=== PATIENT | female | born 1990 | race Caucasian/White ===

== ENCOUNTER 2020-03-23 18:35 | Emergency (ER) | payer OTHER ==
--- NOTE | 2020-03-23 20:04 | ED Physician Documentation ---
PD HPI LOWER EXT INJURY - Stated complaint Stated Complaint: ANKLE INJ - Chief complaint Chief Complaint: Ext Problem - History obtained from History obtained from: Patient - History of Present Illness PD HPI LOW EXT INJURY LOCATION: Left, Ankle Type of injury: Twist Where injury occurred: Park Timing - onset: How many hours ago (2) Timing - duration: Hours (2) Timing - details: Abrupt onset Pain level max: 8 Pain level now: 5 Improved by: Rest Worsened by: Moving, Palpating Associated symptoms: Swelling. No: Weakness, Numbness, Tingling Recently seen: Not recently seen - Additional information Additional information: 29-year-old female complains of left ankle pain and swelling after twisting her ankle. Review of Systems Constitutional: denies: Fever, Chills : denies: Now EGA Neurologic: denies: Head injury PD PAST MEDICAL HISTORY - Past Medical History Past Medical History: No - Past Surgical History Past Surgical History: No - Present Medications Home Medications: Ambulatory Orders Medication Instructions Recorded Confirmed Cetirizine HCl [Zyrtec] 03/23/20 - Allergies Allergies/Adverse Reactions: Allergies Allergy/AdvReac Type Severity Reaction Status Date / Time No Known Drug Allergies Allergy Verified 03/23/20 18:49 - Social History Does the pt smoke?: No Smoking Status: Never smoker Does the pt drink ETOH?: No Does the pt have substance abuse?: No - Immunizations Immunizations are current?: Yes PD ED PE NORMAL - Vitals Vital signs reviewed: Yes - General General: Alert and oriented X 3, No acute distress - HEENT HEENT: Moist mucous membranes - Neck Neck: Supple, no meningeal sign - Derm Derm: Warm and dry - Extremities Extremities: Other (Tender to palpation over the left lateral malleolus. Mild swelling. Neurovascularly intact. No deformity. Otherwise normal examination of the foot and ankle.) - Neuro Neuro: Alert and oriented X 3 - Psych Psych: Normal mood, Normal affect Results - Vitals Vitals: Vital Signs - 24 hr 03/23/20 03/23/20 18:47 21:06 Temperature 36.7 C 36.6 C Heart Rate 82 80 Respiratory 18 16 Rate Blood Pressure 134/82 H 130/80 O2 Saturation 98 100 Oxygen O2 Source Room air - Rads (name of study) Left ankle x-ray Radiology: Prelim report reviewed, EMP read contemporaneously, See rad report (No acute abnormality) PD MEDICAL DECISION MAKING - ED course Complexity details: reviewed results, re-evaluated patient, considered differential, d/w patient ED course: 29-year-old female with a left ankle sprain. Placed in a gel splint for comfort. Will utilize crutches as needed at home. Will use Motrin and Tylenol for pain. Patient counseled regarding signs and symptoms for which I believe and urgent re-evaluation would be necessary. Patient with good understanding of and agreement to plan and is comfortable going home at this time This document was made in part using voice recognition software. While efforts are made to proofread this document, sound alike and grammatical errors may occur. Departure - Departure Disposition: 01 Home, Self Care Clinical Impression: Left ankle sprain Qualifiers: Encounter type: initial encounter Involved ligament of ankle: unspecified ligament Qualified Code(s): S93.402A - Sprain of unspecified ligament of left ankle, initial encounter Condition: Good Instructions: ED Sprain Ankle Follow-Up: your,doctor in 1 week [Other] Comments: You can use Motrin and Tylenol as needed for pain. You may bear weight as tolerated. Return if you worsen. Your x-rays do not show any acute abnormality today. Discharge Date/Time: 03/23/20 21:06
--- NOTE | 2020-03-23 20:27 | XRAY Report ---
PROCEDURE: Ankle 3 View LT INDICATIONS: fall, L ankle pain TECHNIQUE: 3 views of the ankle were acquired. COMPARISON: None FINDINGS: Bones: No fractures or dislocations. Ankle mortise is normally aligned. No suspicious bony lesions . Soft tissues: No tibiotalar joint effusion. Achilles tendon appears normal. IMPRESSION: Normal left ankle Reviewed by: Doug Bates on 03/23/2020 8:26 PM [facility] Approved by: Doug Bates on 03/23/2020 8:26 PM [facility] Station ID: [id number]
[2020-03-23 21:08] VITALS: BP 130/80
== END 2020-03-23 21:06 | disposition home or self-care (01) ==
LOC: ED 18:35
DX: S93.402A Sprain of unspecified ligament of left ankle, initial encounter (principal); X50.1XXA Overexertion from prolonged static or awkward postures, initial encounter; Y93.01 Activity, walking, marching and hiking; Y92.830 Public park as the place of occurrence of the external cause
CPT/HCPCS: 99282; 99283

== ENCOUNTER 2020-12-17 08:24 | Outpatient (CLI) | payer OTHER ==
--- NOTE | 2020-12-17 11:33 | MRI Report ---
PROCEDURE: Ankle LT W/O INDICATIONS: PAIN IN RIGHT AND LEFT ANKLE TECHNIQUE: Noncontrast Magnetic Resonance Imaging (MRI) of the ankle/hindfoot was performed utilizing the follow ing sequences: sagittal T1 spin echo, sagittal STIR or T2 weighted, axial PD fast spin echo, axial T2 fast spin echo with fat saturation, coronal T2 spin echo with fat saturation, and PD fast spin echo with fat saturation. COMPARISON: None. FINDINGS: Bones: No acute fracture. No suspicious osseous lesion. There is mild edema in the tip of the latera l malleolus, which could represent small contusion. Joint effusions: None. Talar dome: No osteochondral lesion. Coalitions: No hindfoot coalition identified. There is diffuse hindfoot and midfoot degenerative spurring and subchondral sclerosis Medial structures: Deltoid ligament: Intact. Spring ligament: Intact. Posterior tibialis: Intact. Mild tenosynovitis. Flexor digitorum longus: Intact. Minimal tenosynovitis. Flexor hallucis longus: Intact. Posterior tibial neurovascular bundle: Normal appearance. Lateral structures: Anterior talofibular ligament: Irregular appearance although probably chronic and no adjacent soft ti ssue edema. This suggests low-grade chronic sprain. Calcaneofibular ligament: Not well seen also suggestive of low-grade sprain. Posterior talofibular ligament: Intact. Anterior tibiofibular ligament: Intact. Posterior tibiofibular ligament: Intact. Peroneus longus: Intact. Peroneus brevis: Intact. Sinus tarsi: Normal appearance. Anterior structures: Dorsal talonavicular ligament: Intact. Tibialis anterior: Intact. Extensor hallucis longus: Intact. Extensor digitorum longus: Intact. Posterior and plantar structures: Achilles tendon: Intact. Plantar fascia: Minimal medial band plantar fasciitis, technically age indeterminate. Muscles: No atrophy to suggest Mojica's neuropathy. Prominent fat signal intensity adjacent to the ab ductor hallucis raising possibility of incidental lipoma measuring 2.0 x 1.2 cm on image . IMPRESSION: Mild marrow edema in the tip the lateral malleolus which could be small contusion versus reactive to chronic/degenerative changes. Mild posterior tibialis and flexor digitorum longus tenosynovitis. Chronic low-grade sprain of the anterior talofibular and calcaneofibular ligaments. Minimal medial band plantar fasciitis, technically unknown age. Reviewed by: Pa Mohamud MD on 12/17/2020 11:32 AM PDT Approved by: Pa Mohamud MD on 12/17/2020 11:32 AM PDT Station ID: [id number]
--- NOTE | 2020-12-17 11:48 | MRI Report ---
PROCEDURE: Ankle RT W/O INDICATIONS: PAIN IN RIGHT AND LEFT ANKLE TECHNIQUE: Noncontrast Magnetic Resonance Imaging (MRI) of the ankle/hindfoot was performed utilizing the follow ing sequences: sagittal T1 spin echo, sagittal inversion recovery, axial PD fast spin echo, axial inv ersion recovery, coronal inversion recovery, and coronal T1 spin echo. COMPARISON: Left ankle radiographs 03/23/2020. FINDINGS: Image quality: Excellent. Bones and joints: There is osseous edema at the lateral aspect of the lateral malleolus may be reactive or secondary to a resolving contusion. There is an osteochondral lesion in the talar dome. Mild spurring is seen at the dorsal talonavicular joint. A small nonedematous plantar calcaneal spur is present. Medial structures: The deep fibers of the deltoid ligament are intact. There is thickening of the distal tibiospring lig ament without surrounding edema, which may be related to chronic tendinosis or a remote prior sprain. Small amount of fluid surrounding the distal posterior tibialis tendon is compatible with mild tenos ynovitis. The flexor digitorum longus and flexor hallucis longus tendons are intact and within normal limits. The posterior tibial neurovascular bundle appears normal within the tarsal tunnel, without e xtrinsic mass effect. Lateral structures: The anterior and posterior distal tibiofibular ligaments are intact. There is thickening of the anter ior talofibular ligament without surrounding edema, compatible with a remote prior sprain or partial tear. The calcaneofibular ligament and posterior talofibular ligament are intact. The peroneus longus and peroneus brevis tendons are intact and otherwise unremarkable. The sinus tarsi demonstrates norm al fatty signal. Anterior structures: The tibialis anterior, extensor hallucis longus, and extensor digitorum longus tendons appear intact. Posterior and plantar structures: The Achilles tendon is intact. There is mild thickening the proximal plantar fascia, consistent with chronic plantar fasciitis. No disproportionate atrophy of the abductor digiti minimi muscle. IMPRESSION: 1. Mild osseous edema at the lateral aspect of the lateral malleolus may represent resolving contusi on versus reactive edema. No discrete fracture line is seen. 2. Chronic grade 1-2 sprain/partial tear of the anterior talofibular ligament. 3. Chronic low-grade sprain of the tibiospring ligament. 4. Mild posterior tibialis tenosynovitis. 5. Mild chronic proximal plantar fasciitis. Reviewed by: Tim Fuentes MD on 12/17/2020 11:47 AM PDT Approved by: Tim Fuentes MD on 12/17/2020 11:47 AM PDT Station ID: [id number]
== END 2020-12-17 08:25 | disposition home or self-care (01) ==
LOC: DI 08:24
PROVIDERS: ATTEND Student in an Organized Health Care Education/Training Program
DX: R93.6 Abnormal findings on diagnostic imaging of limbs (principal); M65.872 Other synovitis and tenosynovitis, left ankle and foot; S93.412A Sprain of calcaneofibular ligament of left ankle, initial encounter; S93.492A Sprain of other ligament of left ankle, initial encounter; M72.2 Plantar fascial fibromatosis; S93.491A Sprain of other ligament of right ankle, initial encounter; M65.9 Synovitis and tenosynovitis, unspecified